=== PATIENT | female | born 1995 | race Hispanic/Latino ===

== ENCOUNTER 2023-08-12 22:36 | Emergency (ER) | payer OTHER, SELFPAY ==
[2023-08-12 22:39] VITALS: BP 120/80
[2023-08-12 23:11] VITALS: BMI 26.3
--- NOTE | 2023-08-12 23:24 | ED.GENMED ---
History of Present Illness
General
Chief Complaint: Cold/Flu/URI Symptoms
Source: patient
Exam Limitations: none
Time Seen by Provider: 08/12/23 23:06
History of Present Illness
History of Present Illness:
This is a 28 year old female that comes in with c/o SOB and chest pain. States that 2 weeks ago she was diagnosed with PNA. States that 2 weeks before that she had gone to her PCP for the same Symptoms and he thought it was just viral. Then she was
given antibiotics and thought she was getting better. States that for the past 8 hour she has had this sharp chest pain and it is even at rest. States that it is in the center slightly to the right. States that she is SOB, had diarrhea and a
headache. Denies any fever, chills, abd pain, nausea, vomiting, dizziness, urinary burning.
Past History
Past History
ED Past Medical History: Asthma and Other (PNA, )
ED Past Surgical History: Orthopedic (Bilateral foot surgery X 2 on both feet)
Social History
Tobacco: Non-smoker
Alcohol: Occasional
Personal:
Living: with family
Employment: Employed
Review of Systems
Review of Systems
All Other Systems: ROS reviewed and negative except as documented in HPI and ROS
Constitutional: Reports no symptoms; Denies fever or chills
EENT: Reports no symptoms
Respiratory: Reports trouble breathing; Denies cough
Cardiac: Reports chest pain
ABD/GI: Reports diarrhea; Denies abdominal pain, nausea or vomiting
: Reports no symptoms; Denies dysuria, frequency or urgency
Musculoskeletal: Reports no symptoms
Skin: Reports no symptoms
Neurological: Reports headache; Denies dizzy
Psychiatric: Reports no symptoms
Phy Exam
General Physical Exam
General Presentation: well appearing and no apparent distress
General age: appears stated age
General Skin: warm and dry
General Habitus: normal
General Mental: alert
General Hydration: appears well hydrated
ENT Exam
ENT Exam: TM's normal, pharynx normal and neck supple
Eye Exam
Eye Exam: EOMI
Cardiovascular Exam
Cardiovascular Exam: regular rate/rhythm, no edema, no murmur and normal peripheral pulses
Pulmonary Exam
Pulmonary Exam: lungs clear, no respiratory distress, no rales, chest non tender, no crackles, no rhonchi, no wheezing and no cough
Gastrointestinal Exam
Gastrointestinal Exam: normal bowel sounds, non tender, soft, no organomegaly, no pulsatile mass and non distended
Musculoskeletal Exam
Musculoskeletal Exam: full ROM and no edema
Skin Exam
Skin Exam: normal color, warm/dry, no rash and no petechia
Psychiatric Exam
Psychiatric Exam: normal mood/affect
Course
Orders/Labs/Results
Orders:
Orders
08/12/23 23:20
Electrocardiogram (*1) Urgent
Reason for Study: Chest Pain
Cardiac Monitoring- Treatment ONCE
EKG- Treatment ONCE
IV Insert/Care/Rem.- Treatment PRN
O2 Therapy [RESP] Urgent
Titrate/Wean O2 to maintain O2 sat greater than (%): 90
Special Instructions: Maintain sats >/=90%
Pulse Ox/spot Check [RESP] Urgent
Quantity: 1
Special Instructions: ON ROOM AIR
08/12/23 23:21
CR Chest - 2 Views Urgent
Comment:
Reason For Exam: sob/chest pain
08/12/23 23:30
Complete Blood Count/With Diff Urgent
Comprehensive Metabolic Panel Urgent
D-Dimer Urgent
Troponin I Urgent
Abnormal Lab Results
08/12/23
23:30
WBC 12.3 H 10^3/uL
(4.8-10.8)
RBC 3.79 L 10^6/uL
(4.20-5.40)
Hct 33.7 L %
(37.0-47.0)
MCH 32.2 H pg
(27.0-31.0)
Absolute Neuts (auto) 8.0 H 10^3/uL
(1.4-6.5)
Absolute Monos (auto) 1.1 H 10^3/uL
(0.1-0.6)
Creatinine 0.5 L mg/dL
(0.6-1.0)
Glucose 114 H mg/dl
(70-99)
08/12/23 23:30
08/12/23 23:30
Leukocytosis ( patient just finished steroids), Glucose nonfasting. D-dimer 0.34 negative. Troponin <0.012
Vital Signs
Initial and Last Documented VS:
Initial Vital Signs
Temp Pulse Resp BP Pulse Ox
97.8 F 100 22 120/80 100
08/12/23 22:39 08/12/23 22:39 08/12/23 22:39 08/12/23 22:39 08/12/23 22:39
Last Documented Vital Signs
Temp Pulse Resp BP Pulse Ox
97.8 F 100 22 120/80 100
08/12/23 22:39 08/12/23 22:39 08/12/23 22:39 08/12/23 22:39 08/12/23 23:14
MDM/Problems Addressed
Differential Diagnosis Includes:
PNA. PE, Athma
MDM/Problems Addressed:
This is a 28 year old female that comes in with c/o chest pain and SOB. States that 2 weeks ago she was told that she had Pneumonia and was treated with antibiotics. States that she thought she was getting better. Then for the past 8 hour patient
has had chest pain that goes into her back and SOB.
Will get labs and Chest x-ray.
Back into see patient. Patient is resting comfortable in bed. Explained that her blood work shows that her WBC are very slightly elevated, otherwise her blood work is normal. Explained that this may just be residual from her prior Pneumonia. Patient
to follow up with the family doctor. Increase her water intake to 8-8oz glasses daily. Return with any concerns.
Chronic conditions affecting care: Asthma
Acute Exacerbation and/or Progression of Chronic Illness: Asthma
*Radiology
Radiology exam reviewed: preliminary read by ED provider (Chest- Negative for active disease. )
*Pulse Oximetry
Patient hypoxic: no
*EKG
Interpreted by ED Provider?: Yes
Heart Rate: 81
Rate: normal
Rhythm: sinus
Jackson: normal axis
Interval: normal interval
QRS Pattern: normal QRS
Ischemia: no ischemia (Checked by Dr. Erazo)
*Critical Care Note
Total Time (30-74mins, 75-104mins- exclusive of procedures): Not Applicable
ED Attending Note
-
Portions of this chart may have been created with voice recognition software.� Occasional wrong word or��sound alike� substitutions may have occurred due to the inherent limitations of voice recognition software.
Discharge Plan
Departure
Patient Disposition: Home (Routine Discharge)
Date of Disposition: 08/13/23
Time of Disposition: 00:25
Patient with high blood pressure during this ER visit?: No
Condition: Good
Covid-19: Not Applicable
Discharge Problem:
SOB (shortness of breath), Chest pain
Instructions: Shortness of Breath, Adult ED, Chest Pain PCP Follow Up
Prescriptions:
No Action
Zyrtec 10 mg Capsule
10 mg PO DAILY
Referrals:
UNKNOWN - PT DOES,NOT KNOW [Unknown Provider] -
Activity Restrictions/Additional Instructions:
As discussed, your blood work shows that your white blood cell count is slightly elevated. Your D-dimer is normal and your chest X-ray is negative for any acute process. This may all be residual from your Prior Pneumonia. Please increase your water
intake to 8-8oz glasses daily. Follow up with the family doctor for recheck. IF YOU HAVE INCREASED OR CHANGING PAIN, OR YOU HAVE ANY OTHER CONCERNS PLEASE RETURN TO THE EMERGENCY ROOM.
Interventions
Interventions:
*Risk Screen - Suicide Last Done: 08/12/23 22:39
*General Assessment Last Done: 08/12/23 23:14
*Neglect/Abuse Screening Last Done: 08/12/23 22:39
ED- Fall Risk Assessment Last Done: 08/12/23 23:14
*ED COVID-19 Vaccine History Last Done: 08/12/23 23:14
ED- Cardiac Assessment Last Done: 08/12/23 23:14
ED- Pulmonary Assessment Last Done: 08/12/23 23:14
Discharge Date and Time
Print Language: VINCENTIAN
[2023-08-12 23:42] LABS: % Basophils 0.7 % (0-2); % Eosinophils 1.9 % (0-6); % Immature Granulocytes 0.3 % (0-0.5); % Lymphocytes 23.4 % (20.5-51.1); % Monocytes 8.8 % (1.7-9.3); % Neutrophils 64.9 % (42.2-75.2); Absolute Basophils 0.1 10^3/uL (0-0.2); Absolute Eosinophils 0.2 10^3/uL (0-0.7); Absolute Lymphocytes 2.9 10^3/uL (1.2-3.4); Absolute Monocytes 1.1 10^3/uL (0.1-0.6); Hematocrit 33.7 % (37.0-47.0); Hemoglobin 12.2 g/dL (12.0-16.0); Mean Corp Hgb Conc. 36.2 g/dL (33.0-37.0); Mean Corpuscular Hgb 32.2 pg (27.0-31.0); Mean Corpuscular Volume 88.9 fL (81.0-99.0); Mean Platelet Volume 9.5 fL (7.4-10.4); Nucleated Red Blood Cells % 0 %; Platelet Count 255 10^3/uL (130-400); Red Blood Cell Count 3.79 10^6/uL (4.20-5.40); Red Cell Dist. Width 12.3 % (11.5-14.5); White Blood Cell Count 12.3 10^3/uL (4.8-10.8)
[2023-08-13 00:07] LABS: D-Dimer 0.34 ug/mlFEU (0.00-0.50)
[2023-08-13 00:08] LABS: ALT (SGPT) 14 U/L (0-35); AST (SGOT) 22 U/L (14-36); Albumin 4.5 g/dl (3.5-5.0); Alkaline Phosphatase 53 U/L (38-126); Blood Urea Nitrogen 11 mg/dl (7-17); Carbon Dioxide 25 mmol/L (22-30); Chloride 104 mmol/L (98-107); Estimated Creatinine Clearance 124 ml/min; Glucose 114 mg/dl (70-99); Potassium 3.6 mmol/L (3.5-5.1); Sodium 139 mmol/L (135-145); Total Bilirubin 0.3 mg/dl (0.2-1.3); Total Protein 6.9 g/dl (6.3-8.2); eGFR > 60.00
[2023-08-13 00:18] LABS: Troponin I < 0.012 ng/ml
[2023-08-13 00:24] VITALS: BP 104/68
== END 2023-08-13 00:54 | disposition home or self-care (01) ==
LOC: EMR 22:36
PROVIDERS: EMERGENCY PHYSICIAN Student in an Organized Health Care Education/Training Program; FAMILY PHYSICIAN Student in an Organized Health Care Education/Training Program
DX: R07.89 Other chest pain (principal); R06.02 Shortness of breath; R19.7 Diarrhea, unspecified; R51.9 Headache, unspecified; J45.909 Unspecified asthma, uncomplicated; Z87.01 Personal history of pneumonia (recurrent); Z88.2 Allergy status to sulfonamides
CPT/HCPCS: 99283; 94760; 71046; 80053; 84484; 85025; 85379; 93005